=== PATIENT | male | born 1955 | race Caucasian/White ===

== ENCOUNTER 2016-07-09 03:38 | Emergency (ER) | payer OTHER, MEDICAID ==
[~2016-07-09] VITALS: Ht 172.7 cm; Wt 122.7 kg
[2016-07-09 03:42] VITALS: Ht 172.7 cm; Wt 122.7 kg
[2016-07-09] MEDS ORDERED: ONDANSETRON 4 MG INJ IV STA ×2 (03:51→06:51)
[2016-07-09] MEDS ORDERED: morphine 4 MG/ML VIAL IV STA (03:51)
--- NOTE | 2016-07-09 04:21 | RADRPT ---
PROCEDURE: XR Chest. CLINICAL INDICATION: Chest pain. TECHNIQUE: AP Portable chest. COMPARISON: No pertinent prior examinations were submitted for comparison. FINDINGS: The cardiomediastinal silhouette is normal. The lungs are clear. The osseous structures are unrema rkable. IMPRESSION: No acute findings. RPTAT: HIKT .Jimmie Farmer MD, MD Date Time Electronically viewed and signed by .Jimmie Farmer MD, MD on 07/09/2016 04:21 .T/
--- NOTE | 2016-07-09 04:29 | RADRPT ---
PROCEDURE: ULTRASOUND BILATERAL LOWER EXTREMITY VENOUS CLINICAL INDICATION: 60-year-old male with lower extremity pain. TECHNIQUE: Multiple sonographic images of the bilateral lower extremity deep venous system was obt ained utilizing grayscale, color-flow, compressive sonography and doppler imaging with augmentation. The images were reviewed on a PACS workstation. COMPARISON: None. FINDINGS: There is normal compressibility and flow within the common femoral, deep femoral, superficial femora l, popliteal, posterior tibial and peroneal veins. IMPRESSION: No sonographic evidence for deep venous thrombosis. .Tyler Contreras MD, MD Date Time Electronically viewed and signed by .Tyler Contreras MD, MD on 07/09/2016 04:29 .Olman/
[2016-07-09 04:57] LABS: BASOPHILS % 0.1 % (0.0-2.0); EOSINOPHILS # 0.3 10^3/ul (0.0-0.5); EOSINOPHILS % 4.2 % (0.0-7.0); HEMOGLOBIN 10.8 g/dl (14.0-18.0); LYMPHOCYTES # 1.1 10^3/ul (0.8-2.9); LYMPHOCYTES % 17.3 % (15.0-51.0); MEAN CORPUSCULAR HEMOGLOBIN 29.8 pg (29.0-33.0); MEAN CORPUSCULAR HGB CONC 33.7 g/dl (32.0-37.0); MEAN CORPUSCULAR VOLUME 88.2 fl (82.0-101.0); MEAN PLATELET VOLUME 7.6 fl (7.4-10.4); MONOCYTE # 0.7 10^3/ul (0.3-0.9); MONOCYTES % 10.1 % (0.0-11.0); NEUTROPHIL # 4.4 10^3/ul (1.6-7.5); NEUTROPHILS % 68.3 % (39.0-77.0); PLATELET COUNT 295 10^3/UL (140-440); RED BLOOD COUNT 3.62 10^6/ul (4.70-6.10); RED CELL DISTRIBUTION WIDTH 12.8 % (11.5-14.5); UNCORRECTED WBC 6.5 10^3/ul (4.8-10.8); WHITE BLOOD COUNT 6.5 10^3/ul (4.8-10.8)
[2016-07-09 04:59] LABS: CONDITION 1
[2016-07-09 05:05] LABS: INR 1.56; PROTIME 18.8 Sec (12.2-14.2); PT RATIO 1.5
[2016-07-09 05:06] LABS: PARTIAL THROMBOPLASTIN TIME 33.3 Sec (25.0-35.0)
[2016-07-09 05:10] LABS: CHLORIDE 106 mmol/L (97-110); SODIUM 142 mmol/L (135-144)
[2016-07-09 05:12] LABS: CREATININE 1.16 mg/dl (0.61-1.24)
[2016-07-09 05:13] LABS: ANION GAP 14 (8-16); BLOOD UREA NITROGEN 30 mg/dl (7-20); CARBON DIOXIDE 26 mmol/L (21-31); GLUCOSE 149 mg/dl (70-220)
[2016-07-09] MEDS ORDERED: KETOROLAC 30 MG INJ IV STA (05:43)
--- NOTE | 2016-07-09 05:43 | ERD ---
ER Documentation Chief Complaint Date/Time DATE: 07/09/16 TIME: 05:41 Chief Complaint left leg pain and numbness HPI This is a 60-year-old left leg pain and numbness. Patient has history of DVT in the past. No trauma. No other current complaints. ROS All systems reviewed and are negative except as per history of present illness. Allergies Allergies: Coded Allergies: No Known Allergy (Unverified , 07/09/16) PMhx/Soc History of Surgery: Yes (TONSILECTOMY, LEFT 2ND TOE AMPUTATION, RECTAL SX) Anesthesia Reaction: No Hx Neurological Disorder: No Hx Respiratory Disorders: Yes (?? ASTHMA, ??COPD) Hx Cardiac Disorders: Yes (CHF, HTN, HIGH CHOL) Hx Psychiatric Problems: No Hx Miscellaneous Medical Probl: Yes ("SOMETHING I CAN'T REMEMBER".) Hx Alcohol Use: No Hx Substance Use: No Hx Tobacco Use: No Smoking Status: Unknown if ever smoked Physical Exam Vitals Vital Signs Date Time Temp Pulse Resp B/P Pulse Ox O2 Delivery O2 Flow Rate FiO2 07/09/16 04:22 Nasal Cannula 07/09/16 04:22 97.2 18 182/82 98 07/09/16 03:42 97.2 76 18 182/82 98 Physical Exam Const: [] Head: Atraumatic Eyes: Normal Conjunctiva ENT: Normal External Ears, Nose and Mouth. Neck: Full range of motion..~ No meningismus. Resp: Clear to auscultation bilaterally Cardio: Regular rate and rhythm, no murmurs Abd: Soft, non tender, non distended. Normal bowel sounds Skin: No petechiae or rashes Back: No midline or flank tenderness Ext: No cyanosis, or edema Neur: Awake and alert Psych: Normal Mood and Affect Result Diagram: 07/09/16 0443 07/09/16442 Results 24 hrs Laboratory Tests Test 07/09/16 04:43 Activated Partial Thromboplast Time 33.3Sec Anion Gap 14 Basophils # 0.010^3/ul Basophils % 0.1% Blood Urea Nitrogen 30mg/dl Calcium Level 9.0mg/dl Carbon Dioxide Level 26mmol/L Chloride Level 106mmol/L Creatinine 1.16mg/dl Eosinophils # 0.310^3/ul Eosinophils % 4.2% Glucose Level 149mg/dl Hematocrit 32.0% Hemoglobin 10.8g/dl INR International Normalized Ratio 1.56 Lymphocytes # 1.110^3/ul Lymphocytes % 17.3% Mean Corpuscular Hemoglobin 29.8pg Mean Corpuscular Hemoglobin Concent 33.7g/dl Mean Corpuscular Volume 88.2fl Mean Platelet Volume 7.6fl Monocytes # 0.710^3/ul Monocytes % 10.1% Neutrophils # 4.410^3/ul Neutrophils % 68.3% Nucleated Red Blood Cells # 0.010^3/ul Nucleated Red Blood Cells % 0.0/100WBC Platelet Count 76582^3/UL Potassium Level 4.0mmol/L Prothrombin Time 18.8Sec Prothrombin Time Ratio 1.5 Red Blood Count 3.6210^6/ul Red Cell Distribution Width 12.8% Sodium Level 142mmol/L Troponin I Pending White Blood Count 6.510^3/ul Current Medications Medications (Trade) Dose Ordered Sig/Willy Route PRN Reason Start Time Stop Time Status Last Admin Dose Admin Morphine Sulfate (morphine) 4 mg ONCE STAT IV 07/09/16 03:51 07/09/16 03:59 DC 07/09/16 04:43 Ondansetron HCl (Zofran Inj) 4 mg ONCE STAT IV 07/09/16 03:51 07/09/16 03:59 DC 07/09/16 04:43 Procedures/MDM EKG: Rate/Rhythm: Normal Sinus Rhythm QRS, ST, T-waves: No changes consistent w/ acute ischemia Impression: No evidence of ischemia or arrhythmia Chest X-ray 1V Interpreted by me: Soft Tissue: No acute abnormalities Bones: No acute abnormalities Mediastinum/Cardiac Silhouette/Lungs: No acute abnormalities DVT study is negative Medical decision making: Space no general pain and numbness in the leg. No evidence of DVT. Nonfocal neurological. He will be discharged home. Departure Diagnosis: Primary Impression: Pain of left leg Condition: Stable DANIELLA ALVARADO Jul 09, 2016 05:43
[2016-07-09] MEDS ORDERED: CYCL-319 PO (05:44)
[2016-07-09] MEDS ORDERED: NAPR-260 PO (05:44)
[2016-07-09 05:50] LABS: TROPONIN-I < 0.010 ng/ml (0.00-0.12)
[2016-07-09] MEDS ORDERED: morphine 2 MG INJ IV ONE (07:00)
[2016-07-09 07:08] VITALS: TEMP 98.1
[2016-07-09 08:00] VITALS: BP 148/79; PULSE 64; RESP 18
== END 2016-07-09 08:00 | disposition home or self-care (01) ==
LOC: E/R 03:38
DX: M79.605 Pain in left leg (principal); I10 Essential (primary) hypertension; I50.9 Heart failure, unspecified; J44.9 Chronic obstructive pulmonary disease, unspecified
CPT/HCPCS: 36415; 71010; 80048; 84484; 85025; 85610; 85730; 93005; 93965; 96374; 96375; 96376; 99285; J1885; J2270; J2405